=== PATIENT | female | born 1995 | race Caucasian/White ===

== ENCOUNTER 2016-05-14 15:52 | Emergency (ER) | payer OTHER ==
[2016-05-14 15:58] VITALS: BP 116/77
== END 2016-05-14 16:44 | disposition home or self-care (01) ==
LOC: ED 15:52
DX: S83.001A Unspecified subluxation of right patella, initial encounter (principal); X58.XXXA Exposure to other specified factors, initial encounter; Y93.89 Activity, other specified; Y92.89 Other specified places as the place of occurrence of the external cause; Y99.8 Other external cause status

== ENCOUNTER 2017-07-05 20:59 | Emergency (ER) | payer OTHER ==
[~2017-07-05] VITALS: Ht 175.3 cm; Wt 46.8 kg
[2017-07-05 21:03] VITALS: Ht 175.3 cm; Wt 46.8 kg
[2017-07-05 21:37] LABS: BASOPHIL % 0.5 % (0-2); PLATELET COUNT 189 x10^3mcL (130-400); RED CELL DISTRIBUTION WIDTH 13.1 % (11.5-14.5)
[2017-07-05 21:47] LABS: CALCIUM 8.5 mg/dL (8.5-10.1); CARBON DIOXIDE 26.4 mmol/L (21-32); CHLORIDE SERUM 108 mmol/L (98-107); CREATININE SERUM 0.7 mg/dL (0.6-1.0); GFR1 > 60 mL/min; GLUCOSE SERUM 78 mg/dL (74-106); POTASSIUM SERUM 3.6 mmol/L (3.5-5.1); SODIUM SERUM 142 mmol/L (136-145)
[2017-07-05 21:55] LABS: ALBUMIN 3.7 g/dL (3.4-5.0); ALKALINE PHOSPHATASE 96 U/L (46-116); ALT/SGPT 13 U/L (14-59); AMYLASE 73 U/L (25-115); AST/SGOT 10 U/L (15-37); BILIRUBIN TOTAL 0.3 mg/dL (0.20-1.00); LIPASE 162 IU/L (73-393); TOTAL PROTEIN, SERUM 7.2 g/dL (6.4-8.2)
[2017-07-05 22:25] VITALS: BP 124/84
== END 2017-07-05 22:25 | disposition home or self-care (01) ==
LOC: ED 20:59
PROVIDERS: Emergency Medicine
DX: K64.8 Other hemorrhoids (principal); K62.5 Hemorrhage of anus and rectum; R42 Dizziness and giddiness; R11.0 Nausea
CPT/HCPCS: 36415; 83880

== ENCOUNTER 2018-03-23 15:12 | Emergency (ER) | payer OTHER | END 2018-03-23 18:48 | disposition home or self-care (01) | LOC: ED 15:12 ==

== ENCOUNTER 2018-04-07 21:11 | Emergency (ER) | payer OTHER ==
[~2018-04-07] VITALS: Ht 175.3 cm; Wt 43.1 kg
[2018-04-07 21:52] VITALS: Ht 175.3 cm; Wt 43.1 kg
[2018-04-08 00:18] VITALS: BP 105/76
== END 2018-04-08 00:18 | disposition home or self-care (01) ==
LOC: ED 21:11
DX: S93.402A Sprain of unspecified ligament of left ankle, initial encounter (principal); F32.9 Major depressive disorder, single episode, unspecified; F41.9 Anxiety disorder, unspecified; Z88.1 Allergy status to other antibiotic agents; W18.31XA Fall on same level due to stepping on an object, initial encounter; Y93.89 Activity, other specified; Y92.89 Other specified places as the place of occurrence of the external cause; Y99.8 Other external cause status

== ENCOUNTER 2019-08-13 00:38 | Emergency (ER) | payer SELFPAY ==
[~2019-08-13] VITALS: Ht 175.3 cm; Wt 45.8 kg
[2019-08-13 00:45] VITALS: Ht 175.3 cm; Wt 45.8 kg
[2019-08-13 05:05] VITALS: BP 110/70
== END 2019-08-13 05:05 | disposition home or self-care (01) ==
LOC: ED 00:38
DX: R06.02 Shortness of breath (principal); Z87.442 Personal history of urinary calculi; Z88.1 Allergy status to other antibiotic agents
CPT/HCPCS: J3535; Q0092